=== PATIENT | female | born 1965 | race Caucasian/White ===

== ENCOUNTER → 2018-02-02 14:40 | Outpatient (CLI) | payer OTHER, SELFPAY ==
[2018-02-07 09:22] LABS: HPV HC, High Risk Negative (Negative); HPV Reflexed? YES, CHARGE PATIENT
== END ==
PROVIDERS: Visit Provider Obstetrics & Gynecology
DX: Z12.4 Encounter for screening for malignant neoplasm of cervix (principal)
CPT/HCPCS: 87624; 88175; G0145

== ENCOUNTER → 2018-03-02 08:07 | Outpatient (CLI) | payer OTHER, SELFPAY ==
--- NOTE | 2018-03-02 08:10 | BI_ITS ---
MAMMOGRAPHY - BILATERAL SCREENING REASON FOR EXAM: Female, 52 years old. Routine annual screening examination. PERTINENT HISTORY: Non-contributory. TECHNIQUE: Digital bilateral breast michelle (3D mammographic acquisition) in the CC and MLO projections. 2-D mediolateral oblique (MLO) and craniocaudad (CC) views of both breasts were obtained. CAD: Full Field Digital Mammography with Computer Added Detection was performed. COMPARISON: Comparison is made with prior examination dated August 13, 2016 and July 07, 2013. FINDINGS: Breast Composition: The breasts are extremely dense, which lowers the sensitivity of mammography. There are no dominant masses or suspicious calcifications. No other significant abnormalities are identified. There has been no significant change since the prior study. BI/SCREENING MAMM (CAD), BILAT IMPRESSION: Stable bilateral screening mammogram. Yearly follow-up mammogram recommended. (A) ASSESSMENT CATEGORY: BIRADS Category 1: Negative. A letter regarding these results will be sent to the patient by the facility within 30 days. Approximately 10% of breast cancers are not detected by mammography. A normal mammogram should not delay biopsy of a clinically suspicious abnormality. [id number] Electronically Signed: Shantanu Skinner MD at 10:56 EDT Tel [phone], Service support ,
== END ==
PROVIDERS: Family Provider Family Medicine; PCP Family Medicine; Visit Provider Obstetrics & Gynecology
DX: Z12.31 Encounter for screening mammogram for malignant neoplasm of breast (principal)
CPT/HCPCS: 77063; 77067

== ENCOUNTER → 2019-02-12 | Outpatient (CLI) | payer OTHER, SELFPAY ==
[2019-02-19 15:49] LABS: HPV Reflexed? NOT INDICATED
== END | disposition home or self-care (01) ==
LOC: LABSPEC 13:31
PROVIDERS: Visit Provider Obstetrics & Gynecology
DX: Z12.4 Encounter for screening for malignant neoplasm of cervix (principal)
CPT/HCPCS: 88175; G0145

== ENCOUNTER → 2019-03-11 | Outpatient (CLI) | payer OTHER, SELFPAY ==
--- NOTE | 2019-03-11 12:09 | BI_ITS ---
MAMMOGRAPHY - BILATERAL SCREENING 3-D TOMOSYNTHESIS REASON FOR EXAM: Female, 53 years old. Bilateral Screening 3-D tomosynthesis PERTINENT HISTORY: No significant family history. TECHNIQUE: 2-D mammograms and 3-D Tomosynthesis of the breast (s) were performed. CAD was performed. COMPARISON: 03/02/2018 FINDINGS: The breast composition is heterogeneously dense that can obscure small breast masses. Scattered benign calcifications are seen. No dense spiculated masses or suspicious microcalcifications are identified. No architectural distortion is identified. There is no skin thickening or retraction. There has been no significant change since the prior study. BI/SCREEN MAMM (CAD) W/DELFINO BILAT IMPRESSION: No mammographic signs of malignancy. Routine yearly mammograms recommended. ASSESSMENT CATEGORY: BIRADS Category 2: Benign. A letter regarding these results will be sent to the patient by the facility within 30 days. FOLLOW UP RECOMMENDATION: Yearly follow up mammogram recommended. (A) Approximately 10% of breast cancers are not detected by mammography. A normal mammogram should not delay biopsy of a clinically suspicious abnormality. Electronically Signed: Reno Adamson MD at 13:00 EDT , Service support ,
== END | disposition home or self-care (01) ==
LOC: OPBI 12:08
PROVIDERS: Family Provider Family Medicine; PCP Family Medicine; Referring Provider Obstetrics & Gynecology; Visit Provider Obstetrics & Gynecology
DX: Z12.31 Encounter for screening mammogram for malignant neoplasm of breast (principal)
CPT/HCPCS: 77063; 77067

== ENCOUNTER → 2024-11-05 | Outpatient (CLI) | payer OTHER, SELFPAY ==
--- NOTE | 2024-11-05 13:15 | CT_ITS ---
PROCEDURE: LIMITED CHEST CT CARDIAC ONLY 11/05/2024 REASON FOR EXAM: CHEST PAIN TECHNIQUE: Chest abdomen and pelvis CT with intravenous contrast. Coronal and Sagittal reconstruction series were provided. One or more dose reduction techniques were used (e.g., Automated exposure control, adjustment of the mA and/or kV according to patient size, use of iterative reconstruction technique. PATIENT PREPARATION: Per protocol CONTRAST: Isovue 370 VOLUME: 75mL COMPARISON: None. FINDINGS: CHEST: Lines and tubes: None Mediastinum: Unremarkable Heart: Unremarkable no coronary artery calcification is seen. Thoracic Aorta: Unremarkable Lungs and Airways: Unremarkable Pleura: Unremarkable Bones: Unremarkable Diffuse fatty infiltration of the liver. CT/Limited Chest CT Cardiac Only IMPRESSION: No acute abnormality is seen. Diffuse fatty infiltration of the liver. No coronary artery calcification is present. Reading Location: [place] [id number]
[2024-11-05 13:31] VITALS: BP 186/68; PULSE 59; RESP 16; TEMP 36.1; O2SAT 99; BMI 27.4
[2024-11-05 13:44] VITALS: BP 186/68; PULSE 64
[2024-11-05] MEDS: Nitroglycerin SL (ED/IMG/CATH) 0.4 MG TABLET SL (13:44)
[2024-11-05 13:50] VITALS: BP 138/80; PULSE 66; RESP 16; O2SAT 99
--- NOTE | 2024-11-06 12:34 | CCTA_ITS ---
CCTA w/Cont Coronary Arteries Date of Study:: 11/05/24 Chest pain Coronary Calcium Scoring: High-resolution Computed Tomographic imaging of the chest was performed on [11/05/2024], with particular attention paid to the coronary arteries. Intravenous contrast agent was administered per protocol and images reconstructed and displayed. LEFT MAIN CORONARY ARTERY: Arises from the left main coronary cusp with no significant atherosclerotic plaquing noted. Bifurcates to left anterior descending artery and left circumflex artery. [] LEFT ANTERIOR DESCENDING CORONARY ARTERY: Left anterior descending artery arises from the left main coronary artery. There is no significant atherosclerotic plaquing noted of this vessel. [] LEFT CIRCUMFLEX CORONARY ARTERY: The left circumflex artery arises from the left main coronary artery and no significant atherosclerotic plaquing is noted in this vessel. [] RIGHT CORONARY ARTERY: Dominant right coronary artery with no significant ather osclerotic plaquing noted. No coronary calcification is noted. CT angiogram demonstrating no significant atherosclerotic plaquing or stenosis noted.
== END | disposition home or self-care (01) ==
LOC: CT 13:08
PROVIDERS: PCP Nurse Practitioner Family; Referring Provider Internal Medicine Cardiovascular Disease; Visit Provider Internal Medicine Cardiovascular Disease
DX: R07.9 Chest pain, unspecified (principal)
CPT/HCPCS: 75574; 76380; Q9967

== ENCOUNTER → 2025-03-07 | Outpatient (CLI) | payer OTHER, SELFPAY ==
--- NOTE | 2025-03-07 08:58 | ECHOD_ITS ---
Reason For Study Reason For Study: HYPERTENSION Procedure This was a 2D Doppler, Color Flow transthoracic echocardiogram. Exam performed in department. Left Ventricle Normal size and thickness. The LV ejection fraction is 65 %. Normal diastology for age. Right Ventricle Normal right ventricle. Atria The left atrium is mildly enlarged. Normal right atrium. Mitral Valve Trivial mitral valve insufficiency. Tricuspid Valve Mild tricuspid valve insufficiency. Normal pulmonary artery pressure. Aortic Valve Mild focal calcification of the aortic valve leaflet. No aortic valve stenosis. No regurgitation. Pulmonic Valve Trivial pulmonic valve insufficiency. Great Vessels Normal sized aortic root. Pericardium/Pleural No pericardial effusion. MMode/2D Measurements & Calculations LVIDd: 4.7 cm IVSd: 0.87 cm LVOT diam: 2.0 cm LVIDs: 2.9 cm LVPWd: 0.72 cm LVOT area: 3.0 cm2 RVDd: 3.4 cm FS: 38.1 % LA dimension: 3.9 cm asc Aorta Diam: 3.2 cm LAV(MOD- bp): 23.4 ml LAV(MOD- bp) Indexed: 13.5 ml/m2 LAV(MOD- sp2): 25.1 ml LAV(MOD- sp4): 23.4 ml SV(MOD- sp4): 34.5 ml LVAd ap4: 21.8 cm2 LVAd ap2: 19.8 cm2 LVLd ap4: 7.2 cm LVLd ap2: 7.0 cm SI(MOD- sp4): 19.9 ml/m2 EDV(MOD-sp4): 55.0 ml EDV(MOD-sp2): 48.4 ml EDV(sp4-el): 56.4 ml EDV(sp2-el): 47.4 ml LVAs ap4: 12.0 cm2 LVAs ap2: 10.5 cm2 LVLs ap4: 5.8 cm LVLs ap2: 5.8 cm ESV(MOD-sp4): 20.5 ml ESV(MOD-sp2): 17.0 ml ESV(sp4-el): 20.8 ml ESV(sp2-el): 16.3 ml EF(MOD-sp4): 62.8 % EF(MOD-sp2): 64.9 % EF(sp4-el): 63.2 % SV(MOD-sp2): 31.4 ml SV(sp4-el): 35.7 ml Ao sinus diam: 3.2 cm SI(MOD-sp2): 18.1 ml/m2 Ao ST Junction: 2.8 cm LA dimension(2D): 3.6 cm LA A4 area: 11.0 cm2 TAPSE: 1.7 cm RA A4 area: 7.0 cm2 Time Measurements MV dec time: 0.18 sec Doppler Measurements & Calculations MV E max luis: 48.2 cm/sec Lat Peak E' Luis: 9.5 cm/sec Med Peak E' Luis: 8.4 cm/sec MV A max luis: 64.0 cm/sec E/E' lat: 5.1 E/E' med: 5.8 MV E/A: 0.75 MV dec slope: 273.6 cm/sec2 Ao V2 max: 124.8 cm/sec LV V1 max: 96.0 cm/sec Ao max P.2 mmHg LV V1 max P.7 mmHg Ao V2 mean: 85.0 cm/sec LV V1 mean P.0 mmHg Ao mean P.3 mmHg LV V1 mean: 66.3 cm/sec Ao V2 VTI: 26.5 cm LV V1 VTI: 22.1 cm AV (velocity ratio): 0.84 TOY(I,D): 2.5 cm2 TOY(V,D): 2.3 cm2 SV(LVOT): 66.4 ml PA V2 max: 94.1 cm/sec TR max luis: 222.6 cm/sec TR max P.8 mmHg ECHO/Echo Complete Interpretation Summary The LV ejection fraction is 65 %. The left atrium is mildly enlarged. Mild tricuspid valve insufficiency. Mild focal calcification of the aortic valve leaflet. No aortic valve stenosis. No regurgitation. Hepatic cyst identified as an incidental finding. Recommend ultrasound liver fo r further evaluation. Ordering Physician: Cornell Colmenares Referring Physician: Cornell Colmenares Performed By: Giovana Recinos RDCS
== END | disposition home or self-care (01) ==
PROVIDERS: PCP Nurse Practitioner Family; Referring Provider Nurse Practitioner Family; Visit Provider Nurse Practitioner Family
DX: I10 Essential (primary) hypertension (principal); Z82.49 Family history of ischemic heart disease and other diseases of the circulatory system
CPT/HCPCS: 93306